=== PATIENT | female | born 1990 | race Caucasian/White ===

== ENCOUNTER 2018-02-16 21:58 | Inpatient (IN) ==
--- NOTE | 2018-02-17 03:53 | ED ---
HPI General Chief Complaint: Abdominal Pain Stated Complaint: low abd pain/kidney stone before Time Seen by Provider: 02/17/18 03:36 Source: patient Mode of arrival: ambulatory Limitations: no limitations History of Present Illness HPI narrative: Patient presents with history of renal calculus 2 weeks ago. Patient was seen and evaluated again 1 week ago and had an ultrasound which shown that the stone had not moved. Patient states that she has intermittent pain to the left flank radiating to the groin. Related Data Home Medications Medication Instructions Recorded Confirmed gabapentin 800 mg PO TID 01/31/18 02/17/18 Allergies Allergy/AdvReac Type Severity Reaction Status Date / Time No Known Allergies Allergy Verified 02/10/18 17:21 Review of Systems ROS: all other systems reviewed are negative [facility] Medical History Medical History No significant medical problems (Acute) Surgical History Surgical History No history of previous surgery (Acute) Social History Social History Substance History: Active Abuse Second Hand Smoke Exposure: No Smoking Status: Current every day smoker Tobacco Type: Cigarettes How Often Do You Have a Drink Containing Alcohol: Monthly or less Recent Travel in [facility] within the Last 8 Weeks: No Recent Out of Country Travel within the Last 8 Weeks: No Substance Abuse Detail Marijuana: Reason for Use: Get High Immunization History Tetanus Immunization: Unsure Exam Narrative Exam Narrative: GENERAL: Alert and oriented CARDIOVASCULAR: Regular rate and rhythm. No murmur appreciated. RESPIRATORY: No accessory muscle use. Clear to auscultation. Breath sounds equal bilaterally. GASTROINTESTINAL: Abdomen soft, non-tender, nondistended. Hepatic and splenic margins not palpable. Flank: Percussion to left flank significant MUSCULOSKELETAL: No obvious deformities. No clubbing. No cyanosis. No edema. NEUROLOGICAL: Awake and alert. No obvious cranial nerve deficits. Motor grossly within normal limits. Normal speech. PSYCHIATRIC: Appropriate mood and affect; insight and judgment normal. Course Initial Documented Vital Signs Temperature 98.4 F 02/16/18 22:03 Pulse Rate 92 H 02/16/18 22:03 Respiratory Rate 20 02/16/18 22:03 Blood Pressure 117/60 02/16/18 22:03 Pulse Oximetry 99 12/10/18 22:03 Last Documented Vital Signs Temperature 98.4 F 02/16/18 22:03 Pulse Rate 85 02/17/18 04:04 Respiratory Rate 18 02/17/18 04:04 Blood Pressure 116/69 02/17/18 04:04 Pulse Oximetry 98 02/17/18 04:04 Medical Decision Making MDM Narrative Medical decision making narrative: Patient has intermittent obstruction secondary to 4 mm calculi of left ureter that has mild to moderate left hydroureter and left hydronephrosis. Obstruction has been there for 17 days Medical Screen Exam Complete: Yes Emergency Medical Condition: Yes Lab Data POC Results POC Urine Results Negative Lab Results 02/17/18 Range/Units 04:00 Urine Color Yellow (Yellw/Straw) Urine Clarity Clear (Clear) Urine pH 6.0 (5.0-8.5) Ur Specific [place] 1.015 (1.002-1.035) Urine Protein Negative (Neg-Trace) mg/dL Urine Glucose (UA) Negative (Negative) mg/dL Urine Ketones Negative (Negative) mg/dL Urine Occult Blood Negative (Negative) Urine Nitrate Negative (Negative) Urine Bilirubin Negative (Negative) Urine Urobilinogen 0.2 (Less than 2) mg/dL Ur Leukocyte Esterase Negative (Negative) Urine RBC 0-3 (0-3) /hpf Urine WBC 0-5 (0-5) /hpf Ur Squamous Epith Cells 6-10 H (0-5) /hpf Micro UA Comment Culture not ind Ur Microscopic Review Microscopic reviewed Imaging Data Radiologist's impression: Abdomen/Pelvis CT 02/17/18 03:46 CONCLUSION: 4 mm distal left ureteral calculus at the ureterovesical junction. Mild-to- moderate left hydroureter and left hydronephrosis. The calculus is more distal than on the comparison study of 01/31/2018. Discharge Plan Discharge Disposition Patient Disposition: ED Admit(ED Internal Use Only) Discharge Order Discharge Orders: ED Use Only Admit Order (Routine); Ordered 02/17/18 Ordered By: Nadir Wilks Discharge Details Diagnosis: Hydronephrosis with urinary obstruction due to renal calculus Physicians Team ED Provider: Nadir Wilks Primary Care Provider: Primary Care Physici,Lizbeth Rxs /Orders / Referrals /Forms Prescriptions: No Action gabapentin 800 mg Tablet 800 mg PO TID RF: 0 Status ED Status: With Doctor
[2018-02-17 04:05] LABS: Bilirubin,Urine Negative (Negative); Clarity,Urine Clear (Clear); Color,Urine Yellow (Yellw/Straw); Glucose,Urine (UA) Negative (Negative); Leukocyte Esterase,Urine Negative (Negative); Nitrite,Urine Negative (Negative); Specific Gravity,Urine 1.015 (1.002-1.035); Urobilinogen,Urine 0.2 mg/dL (Less than 2)
[2018-02-17 04:08] LABS: RBC,Urine 0-3 /hpf (0-3)
[2018-02-17 04:09] LABS: WBC,Urine 0-5 /hpf (0-5)
--- NOTE | 2018-02-17 04:49 | CT ---
EXAM DATE: 02/17/2018 4:43 AM EST AGE/SEX: 27 years / Female INDICATIONS: Renal colic. CLINICAL DATA: This is the patient's initial encounter. Patient reports that signs and symptoms have been present for 2 weeks and indicates a pain score of 5/10. MEDICAL/SURGICAL HISTORY: None. None. RADIATION DOSE: 9.08 CTDI (mGy) [place] [facility] [place]/O [place]AST, 01/31/2018. . TECHNIQUE: Multiple contiguous axial images were obtained through the abdomen. Images were obtained using multiple row detector helical technique. Using automated exposure control and adjustment of the mA and/or kV according to patient size, radiation dose was kept as low as reasonably achievable to o btain optimal diagnostic quality images. DICOM format image data is available electronically for rev iew and comparison. FINDINGS: Lower Lungs: The visualized lower lungs are clear. Liver: The liver has a homogeneous density without space-occupying lesion. There is no dilation of th e biliary tree. Spleen: Homogeneous density without enlargement. Pancreas: Unremarkable without mass or calcification. Kidneys: 4 mm calculus in the distal left ureter at the ureterovesical junction. [id number] di ffuse left hydroureter. Mild to moderate left hydronephrosis. No calculi identified in the kidneys. Adrenal Glands: Unremarkable. Aorta: The aorta and proximal iliac vessels are grossly unremarkable without aneurysmal dilation. Bowel/Mesentery: No evidence of bowel dilatation. No free air or free fluid. Abdominal Wall: Intact. Retroperitoneum: No evidence of adenopathy in the retrocrural, para-aortic, or deep pelvic regions. Bladder: Contours are smooth. Reproductive Organs: No abnormal masses or calcifications seen. Inguinal: The inguinal region is unremarkable without evidence of adenopathy. Bony Structures: Unremarkable. CONCLUSION: 4 mm distal left ureteral calculus at the ureterovesical junction. [id number] left hydroureter and left hydronephrosis. The calculus is more distal than on the comparison study of 01/31/2018. Electronically signed by: Nadir Calvin MD 02/17/2018 4:47 AM EST
[2018-02-17] MEDS ORDERED: Acetaminophen 325 MG Tablet PO PRN (08:33)
[2018-02-17] MEDS ORDERED: Morphine Inj 4 MG/ML Vial IV.PUSH PRN (08:35)
[2018-02-17 09:00] LABS: Baso % (Auto) 0.9 % (0.0-2.0); Eos # (Auto) 0.2 th/mm3 (0.0-0.4); Eos % (Auto) 4.3 % (0.0-4.0); Hemoglobin 12.8 gm/dL (11.6-15.3); Lymph # (Auto) 1.7 th/mm3 (1.0-4.8); Lymph % (Auto) 32.9 % (9.0-44.0); Mean Corpuscular HGB Conc 32.9 % (32.0-36.0); Mean Corpuscular Hemoglobin 30.5 pg (27.0-34.0); Mean Corpuscular Volume 92.6 fL (80.0-100.0); Mean Platelet Volume 10.6 fL (7.0-11.0); Mono # (Auto) 0.4 th/mm3 (0.0-0.9); Mono % (Auto) 8.4 % (0.0-8.0); Neut # (Auto) 2.8 th/mm3 (1.8-7.7); Neut % (Auto) 53.5 % (16.0-70.0); Platelet Count 312 th/mm3 (150-450); Red Blood Count 4.21 mil/mm3 (4.00-5.30); Red Cell Distribution Width 12.3 % (11.6-17.2); White Blood Count 5.1 th/mm3 (4.0-11.0)
[2018-02-17] MEDS: Sod Chloride 0.9% Inj 1,000 ML IV.CONT SCH ×2 (09:07→21:44)
[2018-02-17] MEDS: Senna/Docusate Sodium 8.6/50 MG Tablet PO SCH ×2 (09:08→21:18)
[2018-02-17 09:09] LABS: Chloride 110 meq/L (98-107); Potassium 3.8 meq/L (3.5-5.1); Sodium 141 meq/L (136-145)
[2018-02-17 09:11] LABS: Albumin 3.6 g/dL (3.4-5.0); Anion Gap 7 meq/L (5-15); Blood Urea Nitrogen 14 mg/dL (7-18); Calcium 8.1 mg/dL (8.5-10.1); Glucose,Random 92 mg/dL (74-106)
[2018-02-17 09:16] LABS: Alanine Aminotransferase 17 U/L (10-53); Glomerular Filtration Rate Greater Than 89 mL/min (>89)
[2018-02-17 09:17] LABS: Aspartate Aminotransferase 14 U/L (15-37)
[2018-02-17 09:18] LABS: Alkaline Phosphatase 77 U/L (45-117)
--- NOTE | 2018-02-17 12:24 | P.HP ---
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 Patient does states she was evaluated in January and diagnosed with renal calculus, was sent home states that she would pass the stone. She states that her pain had continued over the last week and actually had an ultrasound outpatient showing no movement of the stone. Patient states that the pain has worsened, is located in her left flank and radiates down to her left groin, is associated with nausea and vomiting for the past day. Is taking anything for the pain. Denies any recent illness including fever, chills, cough, headache, chest pain, or dysuria. Otherwise patient has relatively healthy. Abdominal/pelvis CT done in the ED showing 4 mm distal left ureteral calculus at the UV junction. Urology has been consulted. - Diagnosis (1) Hydronephrosis with urinary obstruction due to renal calculus Inpatient Certification: I certify that the inpatient services were ordered in accordance with Medicare regulations governing the order. This includes certification that hospital inpatient services are reasonable and necessary and in the case of services not specified as inpatient-only under 42 CFR 419.22(n), that they are appropriately provided as inpatient services in accordance to with the 2-midnight benchmark under 43 CFR 412.3(e) Estimated Total Length of Stay (Days): 2 Plans for Post Hospital Care: Home Review of Systems All other systems reviewed negative except as stated in [facility] - History History Provided By: Patient - Medical History Medical History: Medical History (Last Reviewed 02/17/18 @ 12:21 by Anne Ramirez) No significant medical problems - Surgical History Surgical History: Surgical History (Last Reviewed 02/17/18 @ 12:21 by Anne Ramirez) No history of previous surgery - Family History Family History: Family History (Last Updated 02/17/18 @ 12:21 by Anne Ramirez) Other Family history in first degree relatives is unremarkable - Social History I have reviewed the patient's Social History: Yes - Tobacco History Second Hand Smoke Exposure: No Tobacco Use In Past 30 Days: No Smoking Status: Current every day smoker Tobacco Type: Cigarettes - Alcohol History How Often Do You Have a Drink Containing Alcohol: Monthly or less - Substance Use History Substance History: Active Abuse - Substance Use Type Marijuana Reason for Use: Get High - Travel History Recent Travel in the [place] Within the Last 8 Weeks: No Recent Travel Out of the Country Within the Last 8 Weeks: No - Immunization History Tetanus Immunization: Unsure Medications and Allergies Active Medications: Active Medications Acetaminophen (Tylenol) 650 mg PO Q4H PRN PRN Reason: Temp > 100.4, pain 1-2 Sodium Chloride (Ns Inj) 1,000 mls @ 100 mls/hr IV.CONT .Q10H [facility] Last Admin: 02/17/18 09:07 Dose: 100 mls/hr Morphine Sulfate (Morphine Inj) 4 mg IV.PUSH Q4H PRN PRN Reason: BREAKTHROUGH PAIN Ondansetron HCl (Zofran Inj) 4 mg IV.PUSH Q6H PRN PRN Reason: NAUSEA OR VOMITING Oxycodone HCl (Roxicodone) 5 mg PO Q4H PRN PRN Reason: pain 3-10 Last Admin: 02/17/18 09:39 Dose: 5 mg Senna/Docusate Sodium (Mali-Colace) 1 tab PO BID [facility] Last Admin: 02/17/18 09:08 Dose: Not Given Sodium Chloride (Ns Flush) 2 ml IV.FLUSH BID [facility] Last Admin: 02/17/18 09:08 Dose: Not Given Sodium Chloride (Ns Flush) 2 ml IV.FLUSH PRN PRN PRN Reason: FLUSH AFTER USING IV ACCESS Allergies Allergy/AdvReac Type Severity Reaction Status Date / Time No Known Allergies Allergy Verified 02/10/18 17:21 Home Medications Medication Instructions Recorded Confirmed Type gabapentin 800 mg PO TID 01/31/18 02/17/18 History Exam Vital signs: Vital Signs 02/16/18 22:03 02/17/18 04:04 02/17/18 08:00 Temperature 98.4 F Pulse Rate 92 H 85 68 Respiratory Rate 20 18 16 Blood Pressure 117/60 116/69 118/68 Pulse Oximetry 99 98 98 Intake & Output 02/16/18 02/17/18 02/17/18 18:59 06:59 18:59 Weight 64.5 kg Narrative: GENERAL: Well-developed, well-nourished patient in [facility]. SKIN: Warm and dry. No rash. HEAD: Normocephalic. Atraumatic. EYES: Pupils equal and round. No scleral icterus. No injection or drainage. ENT: No nasal bleeding or discharge. Mucous membranes pink and moist. NECK: Supple. Trachea midline. CARDIOVASCULAR: Regular rate and rhythm. S1, S2 noted. No murmur appreciated. RESPIRATORY: No accessory muscle use. Clear to auscultation. Breath sounds equal bilaterally. GASTROINTESTINAL: Abdomen soft, non-tender, nondistended. Normoactive bowel sounds x4. Left Flank: LEFT CVA tenderness. MUSCULOSKELETAL: No obvious deformities. Extremities without clubbing, cyanosis , or edema. NEUROLOGICAL: Awake and alert. No obvious cranial nerve deficits. Motor grossly within normal limits. 5/5 muscle strength in bilateral upper and lower extremities. Normal speech. PSYCHIATRIC: Appropriate mood and affect; insight and judgment normal. Results - Labs CBC & Chem 7: 02/17/18 08:05 02/17/18 08:05 Labs: Laboratory Results - last 24 hr 02/17/18 02/17/18 02/17/18 04:00 08:05 08:05 CBC w Diff Auto diff final WBC 5.1 RBC 4.21 Hgb 12.8 Hct 39.0 MCV 92.6 MCH 30.5 MCHC 32.9 RDW 12.3 Plt Count 312 MPV 10.6 Neut % (Auto) 53.5 Lymph % (Auto) 32.9 [place] % (Auto) 8.4 H Eos % (Auto) 4.3 H Baso % (Auto) 0.9 Neut # (Auto) 2.8 Lymph # (Auto) 1.7 [place] # (Auto) 0.4 Eos # (Auto) 0.2 Baso # (Auto) 0.0 WBC Differential . Differential Comment . Sodium 141 Potassium 3.8 Chloride 110 H Carbon Dioxide 24.0 Anion Gap 7 BUN 14 Creatinine 0.66 Estimated GFR Greater than 89 Random Glucose 92 Calcium 8.1 L Total Bilirubin 0.2 AST 14 L ALT 17 Alkaline Phosphatase 77 Total Protein 7.0 Albumin 3.6 Urine Color Yellow Urine Clarity Clear Urine pH 6.0 Ur Specific [place] 1.015 Urine Protein Negative Urine Glucose (UA) Negative Urine Ketones Negative Urine Occult Blood Negative Urine Nitrate Negative Urine Bilirubin Negative Urine Urobilinogen 0.2 Ur Leukocyte Esterase Negative Urine RBC 0-3 Urine WBC 0-5 Ur Squamous Epith Cells 6-10 H Micro UA Comment Culture not ind Ur Microscopic Review Microscopic reviewed - Imaging Impressions Abdomen/Pelvis CT 02/17/18 03:46 CONCLUSION: 4 mm distal left ureteral calculus at the ureterovesical junction. Mild-to- moderate left hydroureter and left hydronephrosis. The calculus is more distal than on the comparison study of 01/31/2018. Caprini VTE Risk Assessment Caprini VTE Risk Assessment: No/Low Risk (score <= 1) Caprini Risk Assessment Model: Point Value = 1 Point Value = 2 Point Value = 3 Point Value = 5 Age 41-60 Minor surgery BMI > 25 kg/m2 Swollen legs Varicose veins or History of unexplained or recurrent spontaneous Oral contraceptives or hormone replacement Sepsis (< 1 month) Serious lung disease, including pneumonia (< 1 month) Abnormal pulmonary function Acute myocardial infarction Congestive heart failure (< 1 month) History of inflammatory bowel disease Medical patient at bed rest Age 61-74 Arthroscopic surgery Major open surgery (> 45 min) Laparoscopic surgery (> 45 min) Malignancy Confined to bed (> 72 hours) Immobilizing plaster cast Central venous access Age >= 75 History of VTE Family history of VTE Factor V Leiden Prothrombin [id number] Lupus anticoagulant Anticardiolipin antibodies Elevated serum homocysteine Heparin-induced thrombocytopenia Other congenital or acquired thrombophilia Stroke (< 1 month) Elective arthroplasty Hip, pelvis, or leg fracture Acute spinal cord injury (< 1 month) Prophylaxis Regimen: Total Risk Factor Score Risk Level Prophylaxis Regimen 0-1 Low Early ambulation 2 Moderate Order ONE of the following: *Sequential Compression Device (SCD) *Heparin 5000 units SQ BID 3-4 Higher Order ONE of the following medications: *Heparin 5000 units SQ TID *Enoxaparin/Lovenox 40 mg SQ daily (WT < 150 kg, CrCl > 30 mL/min) *Enoxaparin/Lovenox 30 mg SQ daily (WT < 150 kg, CrCl > 10-29 mL/min) *Enoxaparin/Lovenox 30 mg SQ BID (WT < 150 kg, CrCl > 30 mL/min) AND/OR *Sequential Compression Device (SCD) 5 or more Highest Order ONE of the following medications: *Heparin 5000 units SQ TID (Preferred with Epidurals) *Enoxaparin/Lovenox 40 mg SQ daily (WT < 150 kg, CrCl > 30 mL/min) *Enoxaparin/Lovenox 30 mg SQ daily (WT < 150 kg, CrCl > 10-29 mL/min) *Enoxaparin/Lovenox 30 mg SQ BID (WT < 150 kg, CrCl > 30 mL/min) AND *Sequential Compression Device (SCD) Assessment and Plan - Assessment (1) Hydronephrosis with urinary obstruction due to renal calculus Code(s): N13.2 - Hydronephrosis with renal and ureteral calculous obstruction Status: Acute - Plan This is a 27-year-old female patient with: Left ureter hydronephrosis suspect secondary to left renal calculi History of renal calculus -Patient presents with abdominal pain times 2 weeks with me. -Abdominal/pelvis CT reviewed showing 4 mm distal left ureteral calculus at the UV junction. Mild to moderate left hydroureter and left hydronephrosis. -Urology has been consulted, input and recommendations pending. -Will keep n.p.o. for now, awaiting urological input. -Ensure hydration, continue IV fluids NS 100 mL's an hour. -Pain control with morphine IV as needed per pain scale as well as oxycodone available. -CBC, BMP and UA all were unremarkable. -Supportive care. DVT prophylaxis: SCDs.
[2018-02-17 13:32] LABS: Bilirubin,Urine Negative (Negative); Clarity,Urine Clear (Clear); Color,Urine Yellow (Yellw/Straw); Glucose,Urine (UA) Negative (Negative); Leukocyte Esterase,Urine Negative (Negative); Nitrite,Urine Negative (Negative); Urobilinogen,Urine 0.2 mg/dL (Less than 2)
[2018-02-17 13:38] LABS: Squamous Epithelial Cell,Urine 0-5 /hpf (0-5); WBC,Urine 0-5 /hpf (0-5)
[2018-02-18 06:48] LABS: Baso # (Auto) 0.1 th/mm3 (0.0-0.2); Baso % (Auto) 1.5 % (0.0-2.0); Eos # (Auto) 0.2 th/mm3 (0.0-0.4); Eos % (Auto) 4.8 % (0.0-4.0); Hematocrit 36.9 % (35.0-46.0); Hemoglobin 12.1 gm/dL (11.6-15.3); Lymph # (Auto) 1.8 th/mm3 (1.0-4.8); Lymph % (Auto) 47.5 % (9.0-44.0); Mean Corpuscular Hemoglobin 30.4 pg (27.0-34.0); Mean Corpuscular Volume 92.3 fL (80.0-100.0); Mean Platelet Volume 10.5 fL (7.0-11.0); Mono # (Auto) 0.3 th/mm3 (0.0-0.9); Mono % (Auto) 7.7 % (0.0-8.0); Neut # (Auto) 1.5 th/mm3 (1.8-7.7); Neut % (Auto) 38.5 % (16.0-70.0); Platelet Count 302 th/mm3 (150-450); Red Cell Distribution Width 11.8 % (11.6-17.2); White Blood Count 3.9 th/mm3 (4.0-11.0)
[2018-02-18 06:55] LABS: Chloride 111 meq/L (98-107); Potassium 3.8 meq/L (3.5-5.1); Sodium 142 meq/L (136-145)
[2018-02-18 07:04] LABS: Calcium 7.7 mg/dL (8.5-10.1)
[2018-02-18 07:05] LABS: Albumin 3.1 g/dL (3.4-5.0); Anion Gap 7 meq/L (5-15); Blood Urea Nitrogen 10 mg/dL (7-18); Carbon Dioxide 23.9 meq/L (21.0-32.0); Glucose,Random 82 mg/dL (74-106)
[2018-02-18 07:06] LABS: Alanine Aminotransferase 14 U/L (10-53); Aspartate Aminotransferase 14 U/L (15-37)
[2018-02-18 07:07] LABS: Total Protein 6.3 g/dL (6.4-8.2)
[2018-02-18 07:08] LABS: Alkaline Phosphatase 67 U/L (45-117); Glomerular Filtration Rate Greater Than 89 mL/min (>89)
--- NOTE | 2018-02-18 08:44 | P.PNIM ---
Subjective Interval history: Follow-up renal calculi. Patient seen and examined, lying in bed comfortably no apparent distress. Pain is well controlled. Spoke to urologist today, will discharge home to follow-up with the clinic. Strain all urine. Pain medications as ordered. Afebrile. Vital signs stable. Eating well without any nausea or vomiting. Denies any chest pain or shortness of breath. Physical Exam Vital signs: Vital Signs 02/17/18 12:00 02/17/18 16:00 02/17/18 20:00 Temperature 98.6 F 98.2 F 96.4 F L Pulse Rate 70 72 70 Respiratory Rate 18 19 18 Blood Pressure 101/64 105/68 111/69 Pulse Oximetry 98 99 100 02/18/18 00:00 Temperature 96.7 F L Pulse Rate 68 Respiratory Rate 16 Blood Pressure 96/52 L Pulse Oximetry 96 Intake & Output 02/17/18 02/18/18 02/18/18 18:59 06:59 18:59 Intake Total 1000 / 1000 1000 / 1000 Balance 1000 / 1000 1000 / 1000 Weight 70.2 kg Intake: IV 1000 / 1000 1000 / 1000 NS Inj 1,000 ML @ 100 mls/hr IV 1000 / 1000 1000 / 1000 .CONT .Q10H [facility] Rx#:[id number] Other: Date of Last Bowel Movement 02/17/18 Narrative: GENERAL: Well-developed, well-nourished patient in [facility]. SKIN: Warm and dry. No rash. HEAD: Normocephalic. Atraumatic. EYES: Pupils equal and round. No scleral icterus. No injection or drainage. ENT: No nasal bleeding or discharge. Mucous membranes pink and moist. NECK: Supple. Trachea midline. CARDIOVASCULAR: Regular rate and rhythm. S1, S2 noted. No murmur appreciated. RESPIRATORY: No accessory muscle use. Clear to auscultation. Breath sounds equal bilaterally. GASTROINTESTINAL: Abdomen soft, non-tender, nondistended. Normoactive bowel sounds x4. Left Flank: Left CVA tenderness improved. MUSCULOSKELETAL: No obvious deformities. Extremities without clubbing, cyanosis , or edema. NEUROLOGICAL: Awake and alert. No obvious cranial nerve deficits. Motor grossly within normal limits. 5/5 muscle strength in bilateral upper and lower extremities. Normal speech. PSYCHIATRIC: Appropriate mood and affect; insight and judgment normal. Results - Labs CBC & Chem 7: 02/18/18 05:48 02/18/18 05:48 Laboratory Results - last 24 hr 02/17/18 02/17/18 02/17/18 08:05 08:05 12:30 CBC w Diff Auto diff final WBC 5.1 RBC 4.21 Hgb 12.8 Hct 39.0 MCV 92.6 MCH 30.5 MCHC 32.9 RDW 12.3 Plt Count 312 MPV 10.6 Neut % (Auto) 53.5 Lymph % (Auto) 32.9 [place] % (Auto) 8.4 H Eos % (Auto) 4.3 H Baso % (Auto) 0.9 Neut # (Auto) 2.8 Lymph # (Auto) 1.7 [place] # (Auto) 0.4 Eos # (Auto) 0.2 Baso # (Auto) 0.0 WBC Differential . Differential Comment . Sodium 141 Potassium 3.8 Chloride 110 H Carbon Dioxide 24.0 Anion Gap 7 BUN 14 Creatinine 0.66 Estimated GFR Greater than 89 Random Glucose 92 Calcium 8.1 L Total Bilirubin 0.2 AST 14 L ALT 17 Alkaline Phosphatase 77 Total Protein 7.0 Albumin 3.6 Ur Collection Type Clean catch Urine Color Yellow Urine Clarity Clear Urine pH 6.0 Ur Specific [place] 1.020 Urine Protein Negative Urine Glucose (UA) Negative Urine Ketones Negative Urine Occult Blood Negative Urine Nitrate Negative Urine Bilirubin Negative Urine Urobilinogen 0.2 Ur Leukocyte Esterase Negative Urine WBC 0-5 Ur Squamous Epith Cells 0-5 Micro UA Comment Culture not ind Ur Microscopic Review Microscopic reviewed Urine Culture Comments Culture not ind 02/18/18 02/18/18 05:48 05:48 CBC w Diff Auto diff final WBC 3.9 L RBC 4.00 Hgb 12.1 Hct 36.9 MCV 92.3 MCH 30.4 MCHC 33.0 RDW 11.8 Plt Count 302 MPV 10.5 Neut % (Auto) 38.5 Lymph % (Auto) 47.5 H [place] % (Auto) 7.7 Eos % (Auto) 4.8 H Baso % (Auto) 1.5 Neut # (Auto) 1.5 L Lymph # (Auto) 1.8 [place] # (Auto) 0.3 Eos # (Auto) 0.2 Baso # (Auto) 0.1 WBC Differential . Differential Comment . Sodium 142 Potassium 3.8 Chloride 111 H Carbon Dioxide 23.9 Anion Gap 7 BUN 10 Creatinine 0.47 L Estimated GFR Greater than 89 Random Glucose 82 Calcium 7.7 L Total Bilirubin 0.3 AST 14 L ALT 14 Alkaline Phosphatase 67 Total Protein 6.3 L D Albumin 3.1 L Ur Collection Type Urine Color Urine Clarity Urine pH Ur Specific [place] Urine Protein Urine Glucose (UA) Urine Ketones Urine Occult Blood Urine Nitrate Urine Bilirubin Urine Urobilinogen Ur Leukocyte Esterase Urine WBC Ur Squamous Epith Cells Micro UA Comment Ur Microscopic Review Urine Culture Comments Assessment and Plan - Assessment (1) Hydronephrosis with urinary obstruction due to renal calculus Code(s): N13.2 - Hydronephrosis with renal and ureteral calculous obstruction Status: Acute - Plan This is a 27-year-old female patient with: Left ureter hydronephrosis suspect secondary to left renal calculi History of renal calculus -Patient presents with abdominal pain times 2 weeks with me. -Abdominal/pelvis CT reviewed showing 4 mm distal left ureteral calculus at the UV junction. Mild to moderate left hydroureter and left hydronephrosis. -Urology has been consulted, spoke to him this morning, will follow up outpatient in the clinic. Strain all urine. Pain medications as ordered. Started on Flomax. -Ensure hydration, continued on IV fluids overnight, tolerating p.o. intake. -Pain control with morphine IV as needed per pain scale as well as oxycodone available. Rx written for home. -CBC, BMP and UA all were unremarkable. -Supportive care. Discharge home. Follow-up PCP. Rx is written. Diet as tolerated. Activity as tolerated.
[2018-02-18] MEDS: Sod Chloride 0.9% Inj 1,000 ML IV.CONT SCH (09:30)
[2018-02-18] MEDS: Senna/Docusate Sodium 8.6/50 MG Tablet PO SCH (09:32)
[2018-02-18 09:44] VITALS: BP 123/80; PULSE 66; RESP 20; TEMP 98.6; O2SAT 100
== END 2018-02-18 10:05 | disposition home or self-care (01) ==
LOC: PHED 21:58 → PHEDA 02-17 07:26 → PH3 02-17 09:27
PROVIDERS: ADMIT Hospitalist; ATTEND Hospitalist